=== PATIENT | male | born 1955 ===

== ENCOUNTER 2018-05-10 15:40 | Outpatient (CLI) | payer OTHER, BC ==
[~2018-05-10 15:40] MED LIST: ACTOS45 MG PO; ASACOL; CRESTOR10 MG PO; DIPHENOXYLATE/A1 TA1 PO
== END 2018-05-10 15:54 | disposition home or self-care (01) ==
LOC: LAB 15:40
DX: B37.42 Candidal balanitis (principal)

== ENCOUNTER 2019-08-27 00:22 | Emergency (ER) | payer OTHER, BC ==
[~2019-08-27] VITALS: Ht 177.8 cm; Wt 97.1 kg
[2019-08-27] MEDS ORDERED: MECLIZINE HCL25 MG PO (07:11)
== END 2019-08-27 07:39 | disposition home or self-care (01) ==
LOC: ER 00:22
DX: R42 Dizziness and giddiness (principal)